=== PATIENT | female | born 2005 | race Caucasian/White ===

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

== ENCOUNTER 2025-02-17 16:59 | Emergency (ER) | payer SELFPAY ==
[~2025-02-17] VITALS: Ht 157.5 cm; Wt 72.4 kg
[2025-02-17 17:05] VITALS: BP 134/74; TEMP 97.9; O2SAT 100
== END 2025-02-17 17:44 | disposition left against medical advice (07) ==
LOC: M ED 16:59
DX: Z53.21 Procedure and treatment not carried out due to patient leaving prior to being seen by health care provider (principal)

== ENCOUNTER 2025-07-05 03:39 | Emergency (ER) | payer BC, SELFPAY ==
[~2025-07-05] VITALS: Ht 157.5 cm; Wt 71.6 kg
[2025-07-05 04:08] LABS: KETONE, URINE AUTO RFX NEGATIVE (NEGATIVE); RBC, URINE AUTO RFX TNTC /HPF (0-3); SQUAM EPITHELIAL CELL UR AURFX 0 /HPF (0-6)
[2025-07-05 04:12] LABS: NITRITE, URINE AUTO RFX POSITIVE (NEGATIVE)
[2025-07-05 04:13] LABS: LEUKOCYTE ESTERASE UR AUTO RFX 2+ (NEGATIVE); WBC, URINE AUTO RFX TNTC /HPF (0-3)
[2025-07-05 05:30] VITALS: BP_DIAS 80
[2025-07-05] MEDS ORDERED: CEFD1CAP9 PO (06:01)
[2025-07-05] MEDS ORDERED: PYRI1TAB5 PO (06:01)
[2025-07-05 06:07] VITALS: BP_SYST 109; TEMP 97.6; O2SAT 99
[2025-07-05] MEDS: CEFDINIR 300 MG CAP PO ONE (06:10)
[2025-07-05] MEDS: PHENAZOPYRIDINE 100 MG TAB PO ONE (06:10)
== END 2025-07-05 06:23 | disposition home or self-care (01) ==
LOC: M ED 03:39
DX: N39.0 Urinary tract infection, site not specified (principal); E10.9 Type 1 diabetes mellitus without complications; Z90.49 Acquired absence of other specified parts of digestive tract; Z91.09 Other allergy status, other than to drugs and biological substances; Z79.2 Long term (current) use of antibiotics; Z79.899 Other long term (current) drug therapy